=== PATIENT | male | born 1980 | race African-American/Black ===

== ENCOUNTER 2016-11-14 12:48 | Inpatient (IN) | payer OTHER ==
[2016-11-14 16:01] VITALS: BMI 29.9
--- NOTE | 2016-11-14 20:55 | HP ---
COWS - Scale Resting Pulse: 0= MI 80 or Below Sweatin= Chills/Flushing Restless Observation: 3= Extraneous Movement Pupil Size: 0= Normal to Room Light Bone or Joint Aches: 2= Severe Diffuse Aches Runny Nose/ Eye Tearin= Runny Nose/Eyes GI Upset > 30mins: 2= Nausea/Diarrhea Tremor Observation: 2= Slight Tremor Visible Yawning Observation: 0= None Anxiety or Irritability: 2=Irritable/Anxious Goose Flesh Skin: 0=Smooth Skin COWS Score: 14 CIWA Score - CIWA Score Nausea/Vomitin-Mild Nausea/No Vomiting Muscle Tremors: 4-Moderate,w/Arms Extend Anxiety: 4-Mod. Anxious/Guarded Agitation: 4-Moderately Restless Paroxysmal Sweats: 1-Minimal Palms Moist Orientation: 0-Oriented Tacttile Disturbances: 0-None Auditory Disturbances: 0-None Visual Disturbances: 0-None Headache: 0-None Present CIWA-Ar Total Score: 14 Admission ROS BHS - HPI Chief Complaint: withdrawal sx Allergies/Adverse Reactions: Allergies Allergy/AdvReac Type Severity Reaction Status Date / Time No Known Allergies Allergy Verified 11/14/16 19:21 History of Present Illness: 36 years old male with long history of alcohol heroin cocain marijuana nicotine dependence has history of hypertension, depression is admitted to detox Exam Limitations: No Limitations - Ebola screening Have you traveled outside of the country in the last 21 days: No Have you had contact with anyone from an Ebola affected area: No Have you been sick,other than usual withdrawal symptoms: No Do you have a fever: No - Review of Systems Constitutional: Changes in sleep, Weight Stable EENT: reports: Blurred Vision (need eye glasses) Respiratory: reports: No Symptoms reported Cardiac: reports: No Symptoms Reported GI: reports: Nausea, Poor Fluid Intake, Abdominal cramping : reports: No Symptoms Reported Musculoskeletal: reports: Back Pain, Joint Pain, Muscle Pain (feet), Muscle Weakness (both feet), Neck Pain Integumentary: reports: Change in Color (left inner elbow) Neuro: reports: Tremors Endocrine: reports: No Symptoms Reported Hematology: reports: No Symptoms Reported Psychiatric: reports: Judgement Intact, Orientated x3, Anxious, Depressed Other Systems: Reviewed and Negative Patient History - Patient Medical History Hx Anemia: No Hx Asthma: No Hx Chronic Obstructive Pulmonary Disease (COPD): No Hx Cancer: No Hx Cardiac Disorders: No Hx Congestive Heart Failure: No Hx Hypertension: No Hx Hypercholesterolemia: No Hx Pacemaker: No HX Cerebrovascular Accident: No Hx Seizures: No Hx Dementia: No Hx Diabetes: No Hx Gastrointestinal Disorders: No Hx Liver Disease: No Hx Genitourinary Disorders: No Hx Sexually Transmitted Disorders: No Hx Renal Disease (ESRD): No Hx Thyroid Disease: No Hx Human Immunodeficiency Virus (HIV): No Hx Hepatitis C: No Hx Depression: Yes Hx Suicide Attempt: No Hx Bipolar Disorder: No Hx Schizophrenia: No - Patient Surgical History Past Surgical History: No Hx Neurologic Surgery: No Hx Cataract Extraction: No Hx Cardiac Surgery: No Hx Lung Surgery: No Hx Breast Surgery: No Hx Breast Biopsy: No Hx Abdominal Surgery: No Hx Appendectomy: No Hx Cholecystectomy: No Hx Genitourinary Surgery: No Hx Orthopedic Surgery: No - PPD History Previous Implant?: Yes Documented Results: Negative w/o proof Implanted On Prior [facility] Admission?: No PPD to be Administered?: Yes - Smoking Cessation Smoking history: Current every day smoker Have you smoked in the past 12 months: Yes Aproximately how many cigarettes per day: 10 Cigars Per Day: 0 Hx Chewing Tobacco Use: No Initiated information on smoking cessation: Yes 'Breaking Loose' booklet given: 11/14/16 - Substance & Tx. History Hx Alcohol Use: Yes Hx Substance Use: Yes Substance Use Type: Alcohol, Cocaine, Heroin, Marijuana Hx Substance Use Treatment: Yes (12/2015 [facility]) - Substances Abused Heroin Route: Injection Frequency: Daily Amount used: 2 bags Age of first use: 31 Date of Last Use: 11/13/16 Alcohol Route: Oral Frequency: Daily Amount used: liquor- 2 pints Age of first use: 13 Date of Last Use: 11/14/16 Crack Route: Smoking Frequency: Daily Amount used: 2 bags Age of first use: 30 Date of Last Use: 11/13/16 Family Disease History - Family Disease History Family Disease History: Diabetes: Grandparent Admission Physical Exam BHS - Vital Signs Vital Signs: Vital Signs - 24 hr 11/14/16 15:58 Temperature 98.5 F Pulse Rate 75 Respiratory 18 Rate Blood Pressure 122/80 - Physical General Appearance: Yes: Appropriately Dressed, Mild Distress, Obese, Tremorous , Irritable, Sweating, Anxious HEENTM: Yes: Hearing grossly Normal, Normal ENT Inspection, Normocephalic, Normal Voice Respiratory: Yes: Chest Non-Tender, Lungs Clear, Normal Breath Sounds, No Respiratory Distress, No Accessory Muscle Use Neck: Yes: Supple, Trachea in good position Breast: Yes: Breasts Symetrical Cardiology: Yes: Regular Rhythm, Regular Rate, S1, S2 Abdominal: Yes: Non Tender, Soft, Decreased BS Genitourinary: Yes: Within Normal Limits Back: Yes: Normal Inspection Musculoskeletal: Yes: Gait Steady (cane), Joint swelling (feet) Extremities: Yes: Non-Tender, Tremors, Swelling (feet) Neurological: Yes: Fully Oriented, Alert, Normal Response, Depressed Affect Integumentary: Yes: Warm, Track [place] Lymphatic: Yes: Within Normal Limits - Diagnostic (1) Alcohol dependence with uncomplicated withdrawal Current Visit: Yes Status: Acute (2) Opioid dependence with withdrawal Current Visit: Yes Status: Acute (3) Constipation Current Visit: Yes Status: Chronic Qualifiers: Constipation type: slow transit constipation Qualified Code(s): K59.01 - Slow transit constipation; K59.01 - Slow transit constipation (4) Nicotine dependence Current Visit: Yes Status: Acute Qualifiers: Nicotine product type: cigarettes Substance use status: in withdrawal Qualified Code(s): F17.213 - Nicotine dependence, cigarettes, with withdrawal; F17.213 - Nicotine dependence, cigarettes, with withdrawal (5) Bunion Current Visit: Yes Status: Chronic (6) Depression (emotion) Current Visit: Yes Status: Suspected Qualifiers: Depression Type: dysthymia Qualified Code(s): F34.1 - Dysthymic disorder; F34.1 - Dysthymic disorder; F34.1 - Dysthymic disorder Cleared for Admission [facility] - Detox or Rehab [facility] Level of Care: Medically Managed Detox Regimen/Protocol: Methadone/Librium [facility] Breath Alcohol Content Breath Alcohol Content: 0 Urine Drug Screen - Results Drug Screen Negative: No Urine Drug Screen Results: THC-Marijuana, SOSA-Cocaine, OPI-Opiates
[2016-11-14] MEDS ORDERED: METHADONE HCL 10 MG TABLET (FOR DETOX USE ONLY) PO ONE ×2 (21:02→23:00)
[2016-11-14] MEDS ORDERED: ACETAMINOPHEN 325 MG TABLET (FP) PO PRN (21:02)
[2016-11-14] MEDS ORDERED: chlordiazePOXIDE HCL 25 MG CAPSULE PO PRN (21:02)
[2016-11-14] MEDS ORDERED: MAGNESIUM HYDROX 2400MG/30ML ORAL SUSPENSION 30 ML CUP PO PRN (21:02)
[2016-11-14] MEDS ORDERED: guaiFENesin/D-METHORPHAN HB 10 ML UNIT-DOSE CUPS PO PRN (21:02)
[2016-11-14] MEDS ORDERED: MENTHOL/PHENOL 1 EACH UD MM PRN (21:02)
[2016-11-14] MEDS ORDERED: P-EPHED 60MG/TRIPROLIDI 2.5MG TABLET PO PRN (21:02)
[2016-11-14] MEDS ORDERED: diphenhydrAMINE HCL 50 MG CAPSULE PO PRN (21:02)
[2016-11-14] MEDS ORDERED: IBUPROFEN 400 MG TABLET (FP) PO PRN (21:02)
[2016-11-14] MEDS ORDERED: LOPERAMIDE HCL 2 MG CAPSULE PO PRN (21:02)
[2016-11-14] MEDS ORDERED: MAG HYDROX/AL HYDROX/SIMETH 30 ML UNIT-DOSE CUP PO PRN (21:02)
[2016-11-14] MEDS ORDERED: MAGNESIUM CITRATE 300 ML BOTTLE PO PRN (21:02)
[2016-11-14] MEDS: THIAMINE HCL 100 MG TABLET (FP) PO SCH (21:45)
[2016-11-14] MEDS: SENNOSIDES 8.6MG TABLET (FP) PO SCH (21:46)
[2016-11-14 22:12] LABS: URINE APPEARANCE CLEAR; URINE BILIRUBIN NEGATIVE (NEGATIVE); URINE BLOOD NEGATIVE (NEGATIVE); URINE COLOR YELLOW; URINE GLUCOSE (UA) NEGATIVE (NEGATIVE); URINE KETONE NEGATIVE (NEGATIVE); URINE NITRITE NEGATIVE (NEGATIVE); URINE PROTEIN NEGATIVE (NEGATIVE); URINE UROBILINOGEN NEGATIVE mg/dL (0.2-1.0)
[2016-11-14] MEDS: chlordiazePOXIDE HCL 25 MG CAPSULE PO SCH (22:52)
[2016-11-14 23:07] LABS: URINE LEUK ESTERASE Negative (NEGATIVE)
[2016-11-14] MEDS: POLYETHYLENE GLYCOL 3350 119 GM BTL PO SCH (23:56)
[2016-11-15] MEDS: chlordiazePOXIDE HCL 25 MG CAPSULE PO SCH ×4 (05:46→23:34)
[2016-11-15] MEDS: NICOTINE POLACRILEX 2 MG GUM BC PRN (05:46)
--- NOTE | 2016-11-15 09:51 | EKG ---
Test Reason : Blood Pressure : / mmHG Vent. Rate : 070 BPM Atrial Rate : 070 BPM P-R Int : 154 ms QRS Dur : 090 ms QT Int : 362 ms P-R-T Axes : 073 005 035 degrees QTc Int : 390 ms NORMAL SINUS RHYTHM MINIMAL VOLTAGE CRITERIA FOR LVH, MAY BE NORMAL VARIANT EARLY REPOLARIZATION NO PREVIOUS ECGS AVAILABLE Confirmed by RAQUEL JAIME MD ([id number]) on 11/15/2016 9:50:45 AM Referred By: Confirmed By:RAQUEL JAIME MD
[2016-11-15 09:52] LABS: MCH 28.8 pg (25.7-33.7); MCHC 32.2 g/dl (32.0-35.9); MEAN CELL VOLUME 89.7 fl (80-96); MEAN PLT VOLUME 8.3 fl (7.5-11.1); PLATELET COUNT 245 K/MM3 (134-434); RDW 14.9 % (11.9-15.9); WHITE BLOOD COUNT 5.8 K/mm3 (4.0-10.0)
[2016-11-15] MEDS ORDERED: METHADONE HCL 10 MG TABLET (FOR DETOX USE ONLY) PO SCH (10:00)
[2016-11-15 10:09] LABS: ALBUMIN 3.2 g/dl (3.4-5.0); ALK PHOS 94 U/L (45-117); ANION GAP 6 (8-16); BILIRUBIN,TOTAL 0.5 mg/dL (0.2-1.0); CALCIUM 8.7 mg/dL (8.5-10.1); CO2 28 mmol/L (21-32); GLUCOSE,RANDOM 82 mg/dL (74-106); SGOT/AST 20 U/L (15-37); SGPT/ALT 30 U/L (12-78); TOT PROT 6.2 g/dl (6.4-8.2)
[2016-11-15] MEDS: PRENATAL VITAMINS W/ FOLIC ACID TABLET (FP) PO SCH (10:18)
[2016-11-15] MEDS: POLYETHYLENE GLYCOL 3350 119 GM BTL PO SCH ×2 (10:18→23:33)
[2016-11-15] MEDS: NICOTINE 14 MG/24 HOURS TOPICAL PATCH TD SCH (10:19)
[2016-11-15 10:28] LABS: HIV 1 & 2 AB NEGATIVE; HIV 1 AGp24 NEGATIVE
--- NOTE | 2016-11-15 11:20 | PN ---
[facility] CIWA - CIWA Score Nausea/Vomitin-No Nausea/No Vomiting Muscle Tremors: 4-Moderate,w/Arms Extend Anxiety: 4-Mod. Anxious/Guarded Agitation: 4-Moderately Restless Paroxysmal Sweats: 1-Minimal Palms Moist Orientation: 0-Oriented Tacttile Disturbances: 3-Moderate Itch/Numb/Burn Auditory Disturbances: 0-None Visual Disturbances: 0-None Headache: 0-None Present CIWA-Ar Total Score: 16 S COWS - Scale Resting Pulse: 1= SD 81-100 Sweatin= Chills/Flushing Restless Observation: 3= Extraneous Movement Pupil Size: 2= Moderately Dilated Bone or Joint Aches: 4=Acute Joint/Muscle Pain Runny Nose/ Eye Tearin= Nasal Congestion GI Upset > 30mins: 1= Stomach Cramp Tremor Observation of Outstretched Hands: 1= Tremor [place], Not Seen Yawning Observation: 1= 1-2x During Session Anxiety or Irritability: 2=Irritable/Anxious Goose Flesh Skin: 0=Smooth Skin COWS Score: 17 [facility] Progress Note (SOAP) Subjective: ANXIETY,TREMORS,SWEATS,INTERMITTENT SLEEP. Objective: 11/15/16 11:19 Vital Signs Temperature 97.4 F L 11/15/16 09:49 Pulse Rate 82 11/15/16 09:49 Respiratory Rate 18 11/15/16 09:49 Blood Pressure 131/65 11/15/16 09:49 O2 Sat by Pulse Oximetry (%) Laboratory Last Values WBC 5.8 K/mm3 (4.0-10.0) 11/15/16 07:00 RBC 3.87 M/mm3 (4.00-5.60) L 11/15/16 07:00 Hgb 11.1 GM/dL (11.7-16.9) L 11/15/16 07:00 Hct 34.7 % (35.4-49) L 11/15/16 07:00 MCV 89.7 fl (80-96) 11/15/16 07:00 MCH 28.8 pg (25.7-33.7) 11/15/16 07:00 MCHC 32.2 g/dl (32.0-35.9) 11/15/16 07:00 RDW 14.9 % (11.9-15.9) 11/15/16 07:00 Plt Count 245 K/MM3 (134-434) 11/15/16 07:00 MPV 8.3 fl (7.5-11.1) 11/15/16 07:00 Sodium 141 mmol/L (136-145) 11/15/16 07:00 Potassium 4.0 mmol/L (3.5-5.1) 11/15/16 07:00 Chloride 107 mmol/L (98-107) 11/15/16 07:00 Carbon Dioxide 28 mmol/L (21-32) 11/15/16 07:00 Anion Gap 6 (8-16) L 11/15/16 07:00 BUN 9 mg/dL (7-18) 11/15/16 07:00 Creatinine 1.0 mg/dL (0.7-1.3) 11/15/16 07:00 Creat Clearance w eGFR > 60 (>60) 11/15/16 07:00 Random Glucose 82 mg/dL (74-106) 11/15/16 07:00 Calcium 8.7 mg/dL (8.5-10.1) 11/15/16 07:00 Total Bilirubin 0.5 mg/dL (0.2-1.0) 11/15/16 07:00 AST 20 U/L (15-37) 11/15/16 07:00 ALT 30 U/L (12-78) 11/15/16 07:00 Alkaline Phosphatase 94 U/L (45-117) 11/15/16 07:00 Total Protein 6.2 g/dl (6.4-8.2) L 11/15/16 07:00 Albumin 3.2 g/dl (3.4-5.0) L 11/15/16 07:00 Urine Color Yellow 11/14/16 21:30 Urine Appearance Clear 11/14/16 21:30 Urine pH 7.0 (5.0-8.0) 11/14/16 21:30 Ur Specific [place] 1.020 (1.005-1.025) 11/14/16 21:30 Urine Protein Negative (NEGATIVE) 11/14/16 21:30 Urine Glucose (UA) Negative (NEGATIVE) 11/14/16 21:30 Urine Ketones Negative (NEGATIVE) 11/14/16 21:30 Urine Blood Negative (NEGATIVE) 11/14/16 21:30 Urine Nitrite Negative (NEGATIVE) 11/14/16 21:30 Urine Bilirubin Negative (NEGATIVE) 11/14/16 21:30 Urine Urobilinogen Negative mg/dL (0.2-1.0) 11/14/16 21:30 Ur Leukocyte Esterase Negative (NEGATIVE) 11/14/16 21:30 HIV 1&2 Antibody Screen Negative 11/14/16 07:00 HIV P24 Antigen Negative 11/14/16 07:00 Assessment: 11/15/16 11:20 WITHDRAWAL SX Laboratory Last Values WBC 5.8 K/mm3 (4.0-10.0) 11/15/16 07:00 RBC 3.87 M/mm3 (4.00-5.60) L 11/15/16 07:00 Hgb 11.1 GM/dL (11.7-16.9) L 11/15/16 07:00 Hct 34.7 % (35.4-49) L 11/15/16 07:00 MCV 89.7 fl (80-96) 11/15/16 07:00 MCH 28.8 pg (25.7-33.7) 11/15/16 07:00 MCHC 32.2 g/dl (32.0-35.9) 11/15/16 07:00 RDW 14.9 % (11.9-15.9) 11/15/16 07:00 Plt Count 245 K/MM3 (134-434) 11/15/16 07:00 MPV 8.3 fl (7.5-11.1) 11/15/16 07:00 Sodium 141 mmol/L (136-145) 11/15/16 07:00 Potassium 4.0 mmol/L (3.5-5.1) 11/15/16 07:00 Chloride 107 mmol/L (98-107) 11/15/16 07:00 Carbon Dioxide 28 mmol/L (21-32) 11/15/16 07:00 Anion Gap 6 (8-16) L 11/15/16 07:00 BUN 9 mg/dL (7-18) 11/15/16 07:00 Creatinine 1.0 mg/dL (0.7-1.3) 11/15/16 07:00 Creat Clearance w eGFR > 60 (>60) 11/15/16 07:00 Random Glucose 82 mg/dL (74-106) 11/15/16 07:00 Calcium 8.7 mg/dL (8.5-10.1) 11/15/16 07:00 Total Bilirubin 0.5 mg/dL (0.2-1.0) 11/15/16 07:00 AST 20 U/L (15-37) 11/15/16 07:00 ALT 30 U/L (12-78) 11/15/16 07:00 Alkaline Phosphatase 94 U/L (45-117) 11/15/16 07:00 Total Protein 6.2 g/dl (6.4-8.2) L 11/15/16 07:00 Albumin 3.2 g/dl (3.4-5.0) L 11/15/16 07:00 Urine Color Yellow 11/14/16 21:30 Urine Appearance Clear 11/14/16 21:30 Urine pH 7.0 (5.0-8.0) 11/14/16 21:30 Ur Specific [place] 1.020 (1.005-1.025) 11/14/16 21:30 Urine Protein Negative (NEGATIVE) 11/14/16 21:30 Urine Glucose (UA) Negative (NEGATIVE) 11/14/16 21:30 Urine Ketones Negative (NEGATIVE) 11/14/16 21:30 Urine Blood Negative (NEGATIVE) 11/14/16 21:30 Urine Nitrite Negative (NEGATIVE) 11/14/16 21:30 Urine Bilirubin Negative (NEGATIVE) 11/14/16 21:30 Urine Urobilinogen Negative mg/dL (0.2-1.0) 11/14/16 21:30 Ur Leukocyte Esterase Negative (NEGATIVE) 11/14/16 21:30 HIV 1&2 Antibody Screen Negative 11/14/16 07:00 HIV P24 Antigen Negative 11/14/16 07:00 Plan: CONTINUE DETOX
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
[2016-11-15] MEDS: SENNOSIDES 8.6MG TABLET (FP) PO SCH (23:33)
[2016-11-15] MEDS: THIAMINE HCL 100 MG TABLET (FP) PO SCH (23:34)
[2016-11-15] MEDS: QUEtiapine FUMARATE 200 MG TABLET PO SCH (23:34)
[2016-11-16] MEDS: chlordiazePOXIDE HCL 25 MG CAPSULE PO SCH ×3 (05:46→18:28)
[2016-11-16] MEDS: NICOTINE POLACRILEX 2 MG GUM BC PRN (05:47)
[2016-11-16] MEDS: METHADONE HCL 5 MG TABLET (FOR DETOX USE ONLY) PO SCH (10:48)
[2016-11-16] MEDS: PRENATAL VITAMINS W/ FOLIC ACID TABLET (FP) PO SCH (10:49)
[2016-11-16] MEDS: SERTRALINE HCL 50 MG TABLET (FP) PO SCH (10:49)
[2016-11-16] MEDS: NICOTINE 14 MG/24 HOURS TOPICAL PATCH TD SCH (10:50)
[2016-11-16] MEDS: POLYETHYLENE GLYCOL 3350 119 GM BTL PO SCH ×2 (10:51→22:33)
--- NOTE | 2016-11-16 14:12 | PN ---
[facility] CIWA - CIWA Score Nausea/Vomitin-Mild Nausea/No Vomiting Muscle Tremors: 2 Anxiety: 4-Mod. Anxious/Guarded Agitation: 3 Paroxysmal Sweats: 3 Orientation: 2-Disoriented Date<2 days Tacttile Disturbances: 2-Mild Itch/Numbness/Burn Auditory Disturbances: 0-None Visual Disturbances: 0-None Headache: 0-None Present CIWA-Ar Total Score: 17 [facility] COWS - Scale Resting Pulse: 1= MD 81-100 Sweatin= Chills/Flushing Restless Observation: 1= Difficult to Sit Still Pupil Size: 0= Normal to Room Light Bone or Joint Aches: 0= None Runny Nose/ Eye Tearin= Runny Nose/Eyes GI Upset > 30mins: 1= Stomach Cramp Tremor Observation of Outstretched Hands: 2= Slight Tremor Visible Yawning Observation: 1= 1-2x During Session Anxiety or Irritability: 2=Irritable/Anxious Goose Flesh Skin: 3=Piloerection COWS Score: 14 S Progress Note (SOAP) Subjective: Sweating, Tremors, Stomach Cramping. Objective: PT. A & O X 2 (DISORIENTED ABOUT DAY / DATE). PT. OBSERVED AMBULATING ON UNIT. NO ACUTE DISTRESS. 11/16/16 14:09 Vital Signs Temperature 97.2 F L 11/16/16 09:30 Pulse Rate 91 H 11/16/16 09:30 Respiratory Rate 20 11/16/16 09:30 Blood Pressure 130/72 11/16/16 09:30 O2 Sat by Pulse Oximetry (%) Laboratory Tests 11/14/16 11/14/16 11/14/16 07:00 07:00 21:30 WBC RBC Hgb Hct MCV MCH MCHC RDW Plt Count MPV Sodium Potassium Chloride Carbon Dioxide Anion Gap BUN Creatinine Creat Clearance w eGFR Random Glucose Calcium Total Bilirubin AST ALT Alkaline Phosphatase Total Protein Albumin Urine Color Yellow Urine Appearance Clear Urine pH 7.0 Ur Specific [place] 1.020 Urine Protein Negative Urine Glucose (UA) Negative Urine Ketones Negative Urine Blood Negative Urine Nitrite Negative Urine Bilirubin Negative Urine Urobilinogen Negative Ur Leukocyte Esterase Negative RPR Titer Hepatitis C Antibody 0.1 HIV 1&2 Antibody Screen Negative HIV P24 Antigen Negative 11/15/16 11/15/16 11/15/16 07:00 07:00 07:00 WBC 5.8 RBC 3.87 L Hgb 11.1 L Hct 34.7 L MCV 89.7 MCH 28.8 MCHC 32.2 RDW 14.9 Plt Count 245 MPV 8.3 Sodium 141 Potassium 4.0 Chloride 107 Carbon Dioxide 28 Anion Gap 6 L BUN 9 Creatinine 1.0 Creat Clearance w eGFR > 60 Random Glucose 82 Calcium 8.7 Total Bilirubin 0.5 AST 20 ALT 30 Alkaline Phosphatase 94 Total Protein 6.2 L Albumin 3.2 L Urine Color Urine Appearance Urine pH Ur Specific [place] Urine Protein Urine Glucose (UA) Urine Ketones Urine Blood Urine Nitrite Urine Bilirubin Urine Urobilinogen Ur Leukocyte Esterase RPR Titer Nonreactive Hepatitis C Antibody HIV 1&2 Antibody Screen HIV P24 Antigen LABS NOTED. Assessment: 11/16/16 14:10 WITHDRAWAL SYMPTOMS. ANEMIA. Plan: CONTINUE DETOX. FEOSOL, 325 MG PO BIDWM. INCREASE DAILY PO FLUID INTAKE.
[2016-11-16] MEDS: FERROUS SO4 325 MG TABLET (FP) PO SCH (18:27)
[2016-11-16] MEDS: chlordiazePOXIDE 5 MG CAPSULE PO SCH (22:32)
[2016-11-16] MEDS: THIAMINE HCL 100 MG TABLET (FP) PO SCH (22:32)
[2016-11-16] MEDS: SENNOSIDES 8.6MG TABLET (FP) PO SCH (22:32)
[2016-11-16] MEDS: QUEtiapine FUMARATE 200 MG TABLET PO SCH (22:34)
[2016-11-17] MEDS: chlordiazePOXIDE 5 MG CAPSULE PO SCH ×3 (05:31→17:29)
[2016-11-17] MEDS: FERROUS SO4 325 MG TABLET (FP) PO SCH ×2 (07:22→17:30)
[2016-11-17] MEDS: POLYETHYLENE GLYCOL 3350 119 GM BTL PO SCH ×2 (10:06→22:16)
[2016-11-17] MEDS: METHADONE HCL 5 MG TABLET (FOR DETOX USE ONLY) PO SCH (10:07)
[2016-11-17] MEDS: SERTRALINE HCL 50 MG TABLET (FP) PO SCH (10:08)
[2016-11-17] MEDS: PRENATAL VITAMINS W/ FOLIC ACID TABLET (FP) PO SCH (10:08)
[2016-11-17] MEDS: NICOTINE 14 MG/24 HOURS TOPICAL PATCH TD SCH (10:10)
--- NOTE | 2016-11-17 16:41 | PN ---
[facility] Progress Note (SOAP) Subjective: Sweating,interrupted sleep,restless Objective: 11/17/16 16:38 Vital Signs - 8 hr 11/17/16 11/17/16 09:14 13:14 Temperature 96.6 F L 96.9 F L Pulse Rate 59 L 63 Respiratory 18 18 Rate Blood Pressure 137/83 118/85 Laboratory Tests 11/14/16 11/14/16 11/14/16 07:00 07:00 21:30 WBC RBC Hgb Hct MCV MCH MCHC RDW Plt Count MPV Sodium Potassium Chloride Carbon Dioxide Anion Gap BUN Creatinine Creat Clearance w eGFR Random Glucose Calcium Total Bilirubin AST ALT Alkaline Phosphatase Total Protein Albumin Urine Color Yellow Urine Appearance Clear Urine pH 7.0 Ur Specific [place] 1.020 Urine Protein Negative Urine Glucose (UA) Negative Urine Ketones Negative Urine Blood Negative Urine Nitrite Negative Urine Bilirubin Negative Urine Urobilinogen Negative Ur Leukocyte Esterase Negative RPR Titer Hepatitis C Antibody 0.1 HIV 1&2 Antibody Screen Negative HIV P24 Antigen Negative 11/15/16 11/15/16 11/15/16 07:00 07:00 07:00 WBC 5.8 RBC 3.87 L Hgb 11.1 L Hct 34.7 L MCV 89.7 MCH 28.8 MCHC 32.2 RDW 14.9 Plt Count 245 MPV 8.3 Sodium 141 Potassium 4.0 Chloride 107 Carbon Dioxide 28 Anion Gap 6 L BUN 9 Creatinine 1.0 Creat Clearance w eGFR > 60 Random Glucose 82 Calcium 8.7 Total Bilirubin 0.5 AST 20 ALT 30 Alkaline Phosphatase 94 Total Protein 6.2 L Albumin 3.2 L Urine Color Urine Appearance Urine pH Ur Specific [place] Urine Protein Urine Glucose (UA) Urine Ketones Urine Blood Urine Nitrite Urine Bilirubin Urine Urobilinogen Ur Leukocyte Esterase RPR Titer Nonreactive Hepatitis C Antibody HIV 1&2 Antibody Screen HIV P24 Antigen labs noted Assessment: 11/17/16 16:40 Withdrawal sx. Plan: Continue detox
[2016-11-17] MEDS: chlordiazePOXIDE HCL 10 MG CAPSULE PO SCH (22:15)
[2016-11-17] MEDS: THIAMINE HCL 100 MG TABLET (FP) PO SCH (22:15)
[2016-11-17] MEDS: SENNOSIDES 8.6MG TABLET (FP) PO SCH (22:16)
[2016-11-17] MEDS: QUEtiapine FUMARATE 200 MG TABLET PO SCH (22:17)
[2016-11-18] MEDS: chlordiazePOXIDE HCL 10 MG CAPSULE PO SCH ×3 (06:00→17:36)
[2016-11-18] MEDS: FERROUS SO4 325 MG TABLET (FP) PO SCH ×2 (07:11→17:35)
--- NOTE | 2016-11-18 09:26 | PN ---
[facility] Progress Note (SOAP) Subjective: nausea, sweats, interrupted sleep, anxiety, wants to go to rehab tomorrow after detox Objective: 11/18/16 09:24 Vital Signs - 8 hr 11/18/16 11/18/16 03:30 06:18 Temperature 96.8 F L Pulse Rate 63 Respiratory 18 18 Rate Blood Pressure 97/63 Laboratory Tests 11/14/16 11/14/16 11/14/16 07:00 07:00 21:30 WBC RBC Hgb Hct MCV MCH MCHC RDW Plt Count MPV Sodium Potassium Chloride Carbon Dioxide Anion Gap BUN Creatinine Creat Clearance w eGFR Random Glucose Calcium Total Bilirubin AST ALT Alkaline Phosphatase Total Protein Albumin Urine Color Yellow Urine Appearance Clear Urine pH 7.0 Ur Specific [place] 1.020 Urine Protein Negative Urine Glucose (UA) Negative Urine Ketones Negative Urine Blood Negative Urine Nitrite Negative Urine Bilirubin Negative Urine Urobilinogen Negative Ur Leukocyte Esterase Negative RPR Titer Hepatitis C Antibody 0.1 HIV 1&2 Antibody Screen Negative HIV P24 Antigen Negative 11/15/16 11/15/16 11/15/16 07:00 07:00 07:00 WBC 5.8 RBC 3.87 L Hgb 11.1 L Hct 34.7 L MCV 89.7 MCH 28.8 MCHC 32.2 RDW 14.9 Plt Count 245 MPV 8.3 Sodium 141 Potassium 4.0 Chloride 107 Carbon Dioxide 28 Anion Gap 6 L BUN 9 Creatinine 1.0 Creat Clearance w eGFR > 60 Random Glucose 82 Calcium 8.7 Total Bilirubin 0.5 AST 20 ALT 30 Alkaline Phosphatase 94 Total Protein 6.2 L Albumin 3.2 L Urine Color Urine Appearance Urine pH Ur Specific [place] Urine Protein Urine Glucose (UA) Urine Ketones Urine Blood Urine Nitrite Urine Bilirubin Urine Urobilinogen Ur Leukocyte Esterase RPR Titer Nonreactive Hepatitis C Antibody HIV 1&2 Antibody Screen HIV P24 Antigen Assessment: 11/18/16 09:25 withdrawal sx Plan: cont detox, fluids, encourage ambulation
[2016-11-18] MEDS ORDERED: METHADONE HCL 10 MG TABLET (FOR DETOX USE ONLY) PO SCH (10:00)
[2016-11-18] MEDS: SERTRALINE HCL 50 MG TABLET (FP) PO SCH (10:09)
[2016-11-18] MEDS: POLYETHYLENE GLYCOL 3350 119 GM BTL PO SCH ×2 (10:10→22:09)
[2016-11-18] MEDS: PRENATAL VITAMINS W/ FOLIC ACID TABLET (FP) PO SCH (10:10)
[2016-11-18] MEDS: NICOTINE 14 MG/24 HOURS TOPICAL PATCH TD SCH (10:11)
[2016-11-18] MEDS: THIAMINE HCL 100 MG TABLET (FP) PO SCH (22:08)
[2016-11-18] MEDS: QUEtiapine FUMARATE 200 MG TABLET PO SCH (22:08)
[2016-11-18] MEDS: SENNOSIDES 8.6MG TABLET (FP) PO SCH (22:08)
[2016-11-19] MEDS ORDERED: METHADONE HCL 5 MG TABLET (FOR DETOX USE ONLY) PO SCH (06:00)
[2016-11-19 06:23] VITALS: BP 133/78; PULSE 59; TEMP 97.6
[2016-11-19] MEDS: FERROUS SO4 325 MG TABLET (FP) PO SCH (07:07)
--- NOTE | 2016-11-19 12:21 | DS ---
[facility] Detox Discharge Summary Admission Date: 11/14/16 Discharge Date: 11/19/16 - History Present History: Alcohol Dependence, Cannabis Dependence, Cocaine Dependence, Opioid Dependence - Physical Exam Results Vital Signs: Vital Signs Temperature 97.6 F 11/19/16 06:22 Pulse Rate 59 L 11/19/16 06:22 Respiratory Rate 18 11/19/16 06:22 Blood Pressure 133/78 11/19/16 06:22 O2 Sat by Pulse Oximetry (%) Pertinent Admission Physical Exam Findings: WITHDRAWAL SX - Treatment Hospital Course: Detox Protocol Followed, Detoxed Safely, Responded well, Discharged Condition Good - Medication Discharge Medications: Ambulatory Orders NK [No Known Home Medication] 11/14/16 - Diagnosis (1) Alcohol dependence with uncomplicated withdrawal Status: Acute (2) Nicotine dependence Status: Acute Qualifiers: Nicotine product type: cigarettes Substance use status: in withdrawal Qualified Code(s): F17.213 - Nicotine dependence, cigarettes, with withdrawal; F17.213 - Nicotine dependence, cigarettes, with withdrawal (3) Opioid dependence with withdrawal Status: Acute (4) Anemia Status: Acute Qualifiers: Anemia type: iron deficiency (5) Insomnia Status: Acute (6) Bunion Status: Chronic (7) Constipation Status: Chronic Qualifiers: Constipation type: slow transit constipation Qualified Code(s): K59.01 - Slow transit constipation; K59.01 - Slow transit constipation (8) Post traumatic stress disorder (PTSD) Status: Chronic (9) Cocaine dependence Status: Acute (10) Marihuana dependence Status: Acute - AMA Did Patient Leave Against Medical Advice: No
== END 2016-11-19 10:03 | disposition home or self-care (01) | DRG 773 ==
LOC: YASAS 12:48 → Y3N 19:23
PROVIDERS: ADMIT Internal Medicine; ATTEND Internal Medicine
PROC: HZ2ZZZZ Detoxification Services for Substance Abuse Treatment (ICD-10-PCS; principal; 2016-11-14)
DX: F11.23 Opioid dependence with withdrawal (principal); F10.230 Alcohol dependence with withdrawal, uncomplicated; F14.20 Cocaine dependence, uncomplicated; F12.20 Cannabis dependence, uncomplicated; F17.213 Nicotine dependence, cigarettes, with withdrawal; F43.10 Post-traumatic stress disorder, unspecified; F19.24 Other psychoactive substance dependence with psychoactive substance-induced mood disorder; D64.9 Anemia, unspecified; K59.01 Slow transit constipation; G47.00 Insomnia, unspecified; M21.619 Bunion of unspecified foot; E66.9 Obesity, unspecified; Z68.30 Body mass index [BMI] 30.0-30.9, adult; Z59.0 Homelessness
CPT/HCPCS: 36415; 80053; 81003; 85027; 86593; 86803; 87389; 93005; 93010